=== PATIENT | female | born 1985 | race Hispanic/Latino ===

== ENCOUNTER 2017-07-01 18:05 | Emergency (ER) | payer OTHER ==
[~2017-07-01] VITALS: Ht 162.6 cm; Wt 97.8 kg
[~2017-07-01 18:05] MED LIST: CYCLOBENZAPRINE5 MG PO; FLUOXETINE HCL20 MG PO; IBUPROFEN800 MG PO; LEVOTHYROXINE100 MCG PO; MUCINEX SINUS-1 EAC1 PO; NORCO 5-325 TA1 EACH PO; TYLENOL COLD M1 EAC2 PO; VITAMIN D5000 UNIT PO
== END 2017-07-01 19:32 | disposition home or self-care (01) ==
LOC: ED 18:05
DX: T54.91XA Toxic effect of unspecified corrosive substance, accidental (unintentional), initial encounter (principal); F32.9 Major depressive disorder, single episode, unspecified; F41.9 Anxiety disorder, unspecified; Z91.010 Allergy to peanuts
CPT/HCPCS: 99282

== ENCOUNTER 2017-08-15 01:30 | Emergency (ER) | payer OTHER ==
[~2017-08-15] VITALS: Ht 162.6 cm; Wt 97.8 kg
--- NOTE | 2017-08-15 17:26 | EKG ---
[facility] [address] [facility] [place], [place] [address] Signed Normal sinus rhythm Normal ECG No previous ECGs available Confirmed by CARMEN WELLINGTON MD ([id number]) on 08/15/2017 5:26:07 PM Electronically Signed By: CARMEN WELLINGTON MD 08/15/17 1726 PATIENT NAME: BRANDYDANNY Electrocardiogram DATE OF : 85 PHYSICIAN: CARMEN WELLINGTON MD REPORT #: [id number] REPORT IS CONFIDENTIAL AND NOT TO BE RELEASED WITHOUT AUTHORIZATION
== END 2017-08-15 02:16 ==
LOC: ED 01:30
DX: J06.9 Acute upper respiratory infection, unspecified (principal); Z91.010 Allergy to peanuts
CPT/HCPCS: 71045; 93005; 93010; 99283

== ENCOUNTER 2019-10-03 04:43 | Emergency (ER) | payer OTHER ==
[~2019-10-03] VITALS: Ht 162.6 cm; Wt 92.3 kg
[~2019-10-03 04:43] MED LIST changes: +PAROXETINE HCL20 MG PO
[2019-10-03] MEDS ORDERED: LEVOTHYROXINE100 MCG PO (05:05)
[2019-10-03] MEDS ORDERED: PRENATAL FORMU1 EAC2 PO (05:06)
== END 2019-10-03 06:58 | disposition home or self-care (01) ==
LOC: ED 04:43
DX: O20.0 Threatened abortion (principal); F41.9 Anxiety disorder, unspecified; F32.9 Major depressive disorder, single episode, unspecified; Z91.010 Allergy to peanuts; Z79.899 Other long term (current) drug therapy; Z3A.08 8 weeks gestation of pregnancy
CPT/HCPCS: 76801; 81001; 84702; 85025; 86900; 86901; 99284-25

== ENCOUNTER 2019-11-13 19:41 | Emergency (ER) | payer OTHER ==
[~2019-11-13] VITALS: Ht 162.6 cm; Wt 92.1 kg
[~2019-11-13 19:41] MED LIST changes: +PRENATAL FORMU1 EAC2 PO
[2019-11-15] MEDS ORDERED: CORTISPORIN OIN15 GM TOP (07:33)
[2019-11-15] MEDS ORDERED: ACETAMINOPHEN500 MG PO (07:33)
[2019-11-15] MEDS ORDERED: OFLOXACIN5 M1 OTIC (08:32)
== END 2019-11-14 02:04 | disposition home or self-care (01) ==
LOC: ED 19:41
DX: H60.92 Unspecified otitis externa, left ear (principal); F41.9 Anxiety disorder, unspecified; F32.9 Major depressive disorder, single episode, unspecified; Z91.010 Allergy to peanuts; Z79.899 Other long term (current) drug therapy
CPT/HCPCS: 99282

== ENCOUNTER 2019-11-15 07:06 | Emergency (ER) | payer OTHER ==
[~2019-11-15] VITALS: Ht 162.6 cm; Wt 101.4 kg
--- OUTSIDE RECORDS SUMMARY | 2019-11-15 07:08 | XMS ---
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 - 2 Visits in 30 Days CARE PROVIDERS DOMENIC MUNIZ [facility] Current PHONE: [phone] Jordyn has no Care Guidelines for this patient. Vika VISIT COUNT (12 MO.) 3 [facility] TOTAL 3 NOTE: Visits indicate total known visits. 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
[2019-11-15] MEDS ORDERED: CORTISPORIN OIN15 GM TOP (07:33)
[2019-11-15] MEDS ORDERED: ACETAMINOPHEN500 MG PO (07:33)
[2019-11-15] MEDS ORDERED: OFLOXACIN5 M1 OTIC (08:32)
== END 2019-11-15 08:45 | disposition home or self-care (01) ==
LOC: ED 07:06
DX: H60.92 Unspecified otitis externa, left ear (principal); F32.9 Major depressive disorder, single episode, unspecified; E55.9 Vitamin D deficiency, unspecified; F41.9 Anxiety disorder, unspecified; Z91.010 Allergy to peanuts; Z88.8 Allergy status to other drugs, medicaments and biological substances; Z79.899 Other long term (current) drug therapy
CPT/HCPCS: 99282

== ENCOUNTER 2020-02-11 13:50 | Observation (INO) | payer OTHER ==
[~2020-02-11 13:50] MED LIST changes: +ACETAMINOPHEN500 MG PO; +CORTISPORIN OIN15 GM TOP; +OFLOXACIN5 M1 OTIC
== END 2020-02-12 13:45 | disposition home or self-care (01) ==
LOC: FBCO 13:50 → FBC 19:35 → FBCO 02-12 13:45
PROVIDERS: ADMIT Obstetrics & Gynecology; ATTEND Obstetrics & Gynecology
DX: O36.8120 Decreased fetal movements, second trimester, not applicable or unspecified (principal); Z3A.27 27 weeks gestation of pregnancy
CPT/HCPCS: G0378

== ENCOUNTER 2020-04-22 02:47 | Inpatient (IN) | payer OTHER ==
[~2020-04-22] VITALS: Ht 162.6 cm; Wt 110.7 kg
--- NOTE | 2020-04-22 04:02 | NUR ---
SWABBED BOTH NARES FOR RAPID COVID TEST
[2020-04-22] MEDS ORDERED: LEVOTHYROXINE175 MC1 PO (04:09)
[2020-04-22] MEDS ORDERED: KEFLEX750 MG PO (04:10)
--- NOTE | 2020-04-22 07:13 | NUR ---
04/22/20 0713 Miryam Valentine 0622 PT ARRIVED IN PACU WIDE AWAKE C/O ABD CRAMPING. 0626 ANESTHESIA GAVE 1 GM OF IV TYLENOL FOR 4/10 ABD CRAMPING. 0630 FBC RN IN ROOM HELPING MOM BREAST FEED BABY. DAD AT BEDSIDE TAKING PICS. 0645 MOM HOLDING BABY SKIN TO SKIN. NO C/O'S. 0655 MOM ASKING FOR HELPING BREAST FEEDING BABY. RN ASKED FBC RN TO RETURN TO ROOM AND ASSIST PT. REPORT GIVEN TO FBC RN AT NURSES STATION.
--- NOTE | 2020-04-23 06:54 | PR ---
[facility] [address] [place], [place] [address] Signed PP Progress Notes Datetime Report Generated by CPN: 04/23/2020 06:54 SUBJECTIVE: [id number] Pain: Within Normal Limits Nausea/Vomiting: Denies Flatus: Yes Bowel Movement: No Vital Signs: [id number] Vital Signs: Reviewed; Within Normal Limits Cardiovascular: Normal Respiratory: Normal Abdomen/Uterus: Normal Lochia: Normal Vulva/Perineum: Not Done Breasts: Not Done CVA Tenderness: Normal Incision: Normal Progress: Normal Exam Comments: Fundus firm U-2 nontender. Incision well healing IMPRESSION/PLAN/PROCEDURES: [id number] Impression: Normal Progression Plan: Continue Present Management Progress Notes: Pt seen and examined. Doing well. Ambulating and tolerating full diet. Pain and lochia minimal. Breast and bottle feeding. No fevers/chills, or other concerns. Webb out this AM. Anticipate d/c home tomorrow Signing Physician: Domonique Siu DO Copies: ~ *Electronically Signed* 04/23/20 0654 DOMONIQUE SIU DO PATIENT NAME: DANNY CARDONA PROGRESS NOTE DATE OF : [birth year] PHYSICIAN: DOMONIQUE SIU DO RPT #: [id number] REPORT IS CONFIDENTIAL AND NOT TO BE RELEASED WITHOUT AUTHORIZATION
--- NOTE | 2020-04-24 08:54 | PR ---
[facility] [address] [facility] [place], [place] [address] Signed PP Progress Notes Datetime Report Generated by CPN: 04/24/2020 08:53 SUBJECTIVE: [id number] Pain: Within Normal Limits Nausea/Vomiting: Denies Flatus: Yes Bowel Movement: No Vital Signs: [id number] Vital Signs: Reviewed; Within Normal Limits Cardiovascular: Normal Respiratory: Normal Abdomen/Uterus: Normal Lochia: Normal Vulva/Perineum: Not Done Breasts: Not Done CVA Tenderness: Normal Extremities: Normal Incision: Normal Progress: Normal Exam Comments: Fundus firm U-2 nontender. Incision healing well w/ jorge in place IMPRESSION/PLAN/PROCEDURES: [id number] Impression: Normal Progression Plan: Discharge Progress Notes: Pt seen and examined. Doing well. Ambulating, voiding, and tolerating full diet. SAHU improved. No fevers/chills or other concerns. Pain and lochia mild. Desires d/c home today. Reviewed d/c instructions in detail. All questions answered. Signing Physician: Domonique Siu DO Copies: ~ *Electronically Signed* 04/24/20 0853 DOMONIQUE SIU DO PATIENT NAME: DANNY CARDONA PROGRESS NOTE DATE OF : [birth year] PHYSICIAN: DOMONIQUE SIU DO RPT #: [id number] REPORT IS CONFIDENTIAL AND NOT TO BE RELEASED WITHOUT AUTHORIZATION
--- NOTE | 2020-04-25 16:30 | OR ---
[facility] [address] [place], [place] [address] Signed DATE OF OPERATION: 04/22/2020 SURGEON: Domonique Siu DO PREOPERATIVE DIAGNOSES: 1. Term . 2. Breech presentation. 3. Spontaneous rupture of membranes. 4. Obesity. POSTOPERATIVE DIAGNOSES: 1. Term . 2. Breech presentation. 3. Spontaneous rupture of membranes. 4. Obesity. PROCEDURE PERFORMED: Primary low transverse delivery. ANESTHESIA: Spinal. ORNAMENTAL BRICK INSTALLER: Cherise Ward DO ESTIMATED BLOOD LOSS: 600 mL. COMPLICATIONS: None. FINDINGS: Viable male , born in the breech presentation. Clear amniotic fluid. Normal uterus, tubes, and ovaries. INDICATIONS: Ms. Pinzon is a very pleasant 34-year-old G2, P1 female, who presented to Labor and Delivery in 37th week with spontaneous rupture of membranes. was complicated by persistent breech presentation and suspected macrosomia. The patient had previously declined external cephalic version. The patient was consented for primary Electronically Signed By: DOMONIQUE SIU DO 04/25/20 1630 PATIENT NAME: DANNY CARDONA OPERATIVE REPORT DATE OF : [birth year] REPORT #: [id number] PHYSICIAN: DOMONIQUE SIU DO PCP: DOMENIC MUNIZ MD REPORT IS CONFIDENTIAL AND NOT TO BE RELEASED WITHOUT AUTHORIZATION [address], [place] [address] Signed low transverse delivery. Risks, benefits, and alternatives were discussed in detail with the patient. The patient understands and wishes to proceed with the procedure. TECHNIQUE: The patient was taken to the operating room where time-out was performed to confirm correct patient and correct procedure. Spinal anesthesia was adequately established. The patient was prepped and draped in the supine position with a bump under the right hip. ICPs were on and running. The patient received Ancef 3 g and azithromycin 500 mg IV preoperatively. No heparin was indicated. A Pfannenstiel skin incision was made and carried down to the fascia after ensuring adequate spinal anesthetic. The fascia was nicked in the midline with a surgical scalpel and fascial incision was extended bilaterally using curved Lopez scissors. The fascia was grasped with Bennie clamps, elevated, and the underlying rectus muscle dissected bluntly and sharply without difficulty. The rectus muscles were divided in the midline and the peritoneum was grasped, elevated, and entered sharply. Peritoneal incision was extended cephalad caudad using blunt and sharp dissection. Survey of the abdomen and pelvis demonstrated no intraabdominal adhesions. An Ezequiel self retractor was placed in the lower uterine segment identified. Hysterotomy was then performed with a surgical scalpel returning clear fluid. Hysterotomy was then extended bilaterally using blunt dissection. The surgeon's hand was placed in the uterine cavity and the buttocks were gently elevated into the maternal abdomen, delivered with the assistance of fundal pressure. The was delivered up to the anterior facing axilla and the anterior arm was swept medially and delivered. The baby was rotated to 180 degrees. The now anterior arm was swept medially and delivered. The baby was then rotated occiput anterior and the head was gently flexed and delivered with the assistance of fundal pressure without any difficulty. The was vigorous and cried at delivery and the cord doubly clamped and cut. The was handed to the waiting pediatric team for further care. Cord bloods were obtained for routine analysis. The placenta was then manually expressed intact with a centrally inserted 3-vessel cord. The uterine cavity was cleared of any remaining products of conception or clot. The uterus firmed quickly with no excessive blood loss. Hysterotomy was then repaired using 0 Monocryl in a running locked manner. A 2nd imbricating suture of 0 Monocryl was applied with good imbrication noted. Small amount of oozing was noted in the midline and a [id number]-iv-[id number] was placed. Quickly expanding hematoma was noted at the superior edge of the peritoneal incision of the uterine corpus and this was made hemostatic with another tqvxdu-vv-zddcf of 0 Monocryl. The hematoma was evaluated for several minutes to ensure that it was no longer expanding. The pelvis was irrigated and found to be hemostatic. Tubes and ovaries were identified and normal. The Ezequiel self retractor was removed and the hysterotomy again re-evaluated and found to be satisfactory. ACell sheet was placed in the lower uterine segment and the peritoneum was reapproximated using 2-0 Vicryl in a running nonlocked manner. Rectus was examined and made hemostatic Electronically Signed By: DOMONIQUE SIU DO 04/25/20 1630 PATIENT NAME: BRANDY BERNALDANNY OPERATIVE REPORT DATE OF : [birth year] REPORT #: [id number] PHYSICIAN: DOMONIQUE SIU DO PCP: DOMENIC MUNIZ MD REPORT IS CONFIDENTIAL AND NOT TO BE RELEASED WITHOUT AUTHORIZATION [address] [address] Signed with judicious use of the Bovie electrocautery. Rectus was then plicated in the midline using 0 Vicryl interrupted sutures. ACell powder was applied to the rectus sheath. The fascia was then reapproximated using 0 Vicryl in a running nonlocked manner. Subcu was irrigated and made hemostatic with judicious use of Bovie electrocautery. Subcu was then closed using 2-0 Vicryl in a running nonlocked manner. Skin was reapproximated with surgical jorge with excellent hemostasis and cosmesis. The uterus was Crede'd for scant blood and the patient was taken to the PACU in good and stable condition. Sponge, needle, and instrument count was correct x2 at the end of the procedure. Dr. Ward was present and participated in all portions of procedure. Domonique Siu DO JDW/MODL /[id number] Copies: ~ Electronically Signed By: DOMONIQUE SIU DO 04/25/20 1630 PATIENT NAME: BRANDY BERNALDANNY OPERATIVE REPORT DATE OF : 85 REPORT #: [id number] PHYSICIAN: DOMONIQUE SIU DO PCP: DOMENIC MUNIZ MD REPORT IS CONFIDENTIAL AND NOT TO BE RELEASED WITHOUT AUTHORIZATION
== END 2020-04-24 16:40 | disposition home or self-care (01) | DRG 788 ==
LOC: FBCO 02:47 → FBC 03:01
PROVIDERS: ADMIT Obstetrics & Gynecology; ATTEND Obstetrics & Gynecology
PROC: 10D00Z1 Extraction of Products of Conception, Low, Open Approach (ICD-10-PCS; principal; 2020-04-22 04:59)
PROC: 3E0R3GC Introduction of Other Therapeutic Substance into Spinal Canal, Percutaneous Approach (ICD-10-PCS; 2020-04-24)
DX: O32.1XX0 Maternal care for breech presentation, not applicable or unspecified (principal); Z3A.37 37 weeks gestation of pregnancy; Z37.0 Single live birth; Z20.822 Contact with and (suspected) exposure to COVID-19; O99.214 Obesity complicating childbirth; E66.9 Obesity, unspecified; O89.4 Spinal and epidural anesthesia-induced headache during the puerperium; G97.1 Other reaction to spinal and lumbar puncture; O99.824 Streptococcus B carrier state complicating childbirth; O42.92 Full-term premature rupture of membranes, unspecified as to length of time between rupture and onset of labor; O36.63X0 Maternal care for excessive fetal growth, third trimester, not applicable or unspecified; O99.284 Endocrine, nutritional and metabolic diseases complicating childbirth; E03.9 Hypothyroidism, unspecified; Z88.8 Allergy status to other drugs, medicaments and biological substances; Z79.899 Other long term (current) drug therapy
CPT/HCPCS: 01961; 36415; 85027; C9803; J0131; J0456; J0461; J0690; J1650; J1885; J2001; J2274; J2405; J2590; J2710; J3010; J7060; J7121; U0003

== ENCOUNTER 2021-02-22 12:38 | Emergency (ER) | payer OTHER ==
[~2021-02-22] VITALS: Ht 152.4 cm; Wt 110.9 kg
[~2021-02-22 12:38] MED LIST changes: +KEFLEX750 MG PO; +LEVOTHYROXINE175 MC1 PO
== END 2021-02-22 14:07 | disposition home or self-care (01) ==
LOC: ED 12:38
DX: S61.211A Laceration without foreign body of left index finger without damage to nail, initial encounter (principal); W26.0XXA Contact with knife, initial encounter; Z88.8 Allergy status to other drugs, medicaments and biological substances; Z91.010 Allergy to peanuts; Z79.899 Other long term (current) drug therapy
CPT/HCPCS: 12001; 90471; 90715; 99282-25

== ENCOUNTER 2021-03-30 12:52 | Emergency (ER) | payer OTHER ==
[~2021-03-30] VITALS: Ht 152.4 cm; Wt 110.9 kg
== END 2021-03-30 14:59 | disposition home or self-care (01) ==
LOC: ED 12:52
DX: U07.1 COVID-19 (principal); Z88.8 Allergy status to other drugs, medicaments and biological substances; Z91.010 Allergy to peanuts; Z79.899 Other long term (current) drug therapy
CPT/HCPCS: 99284; U0003

== ENCOUNTER 2021-09-29 06:08 | Observation (INO) | payer OTHER ==
[~2021-09-29] VITALS: Ht 152.4 cm; Wt 103.0 kg
--- NOTE | 2021-09-29 13:25 | CONS ---
[facility] [address] [place], [place] [address] Signed DATE OF CONSULTATION: 09/29/2021 CHIEF COMPLAINT: Right lower quadrant abdominal pain. HISTORY OF PRESENT ILLNESS: Angélica is a 36-year-old obese female I have known for several years. She has had 2-day history now of periumbilical pain, it is now localized to the right lower quadrant associated with nausea. She came to the emergency room for evaluation. In the emergency room, her white count is normal, but she is tender in the right lower quadrant. Beta- HCG was negative. The CT scan of abdomen and pelvis shows the appendix at about 9 mm with some mild periappendiceal inflammation and two appendicoliths. She happens to have a small fat containing supraumbilical, umbilical and infraumbilical hernias. These are from her laparoscopic cholecystectomy and her laparoscopic removal of the right ovary. I have been asked therefore to see her as a general surgeon on-call here in the emergency room. PAST MEDICAL HISTORY: 1. Hypothyroidism. 2. Depression. 3. Anxiety. 4. Vitamin D deficiency. PAST SURGICAL HISTORY: Includes laparoscopic cholecystectomy by Dr. Villaseñor, laparoscopic right salpingo-oophorectomy with Dr. Allan Schultz, right upper extremity cyst removal. SOCIAL HISTORY: She does not smoke. She has an occasional drink. Her is Maurice at [phone] and her sister is Amara Pinzon at [phone]. [place] Her survival specialist is Dr. Yogi Siu. 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 She does drive. She has two children. She prefers the [facility]. FAMILY HISTORY: Dad has diabetes. REVIEW OF SYSTEMS: She had 10 systems reviewed including the pertinent positives as above. ALLERGIES: Peanuts and terbinafine. Electronically Signed By: ELIE VILLASEÑOR MD 09/29/21 1325 PATIENT NAME: ANGÉLICA QUESADA CONSULTATION DATE OF : 85 REPORT #: [id number] PHYSICIAN: ELIE VILLASEÑOR MD PCP: VIDA MUNIZ MD REPORT IS CONFIDENTIAL AND NOT TO BE RELEASED WITHOUT AUTHORIZATION [facility] [address] [place] [id number] Signed MEDICATIONS: Levothyroxine 175 mcg p.o. daily. PHYSICAL EXAMINATION: VITAL SIGNS: Her blood pressure is 117/69, her heart rate is 65, respiratory rate is 18, temperature is 98.8, she is 100% on room air. She is 5 feet tall, 102 kg. GENERAL: Angélica is a 36-year-old female lying supine in her ER bed. She does not appear systemically ill or toxic. She is alert, awake, and interactive. LUNGS: Clear to auscultation bilaterally. HEART: Regular rate and rhythm without murmurs. ABDOMEN: Obese, but soft with some tenderness in the right lower quadrant even after the pain medication. LABORATORY DATA: Her white blood cell count is 7.4, neutrophils 60, hemoglobin 14 BUN 20, creatinine 1.15, glucose 107. Liver function tests are negative. Beta-hCG negative. COVID is pending. Albumin is 3.8. Urinalysis is negative. RADIOGRAPHIC STUDIES: CT scan of the abdomen and pelvis is reviewed and she has three small fat containing hernias in the supraumbilical, umbilical and infraumbilical areas associated with the laparoscopic surgeries. She has an appendix that is about 9 mm in diameter with mild periappendiceal inflammation and two appendicoliths. ASSESSMENT AND PLAN: Angélica is a 36-year-old female who presents with acute appendicitis. I reviewed the findings with her in detail. We have discussed laparoscopic versus open appendectomy. We have discussed the location and function of the appendix. We have discussed the expected intraop and postop course. We reviewed the risk including, but not limited to bleeding, infection, scarring, change in contour of the skin, damage to bowel, appendiceal stump leak, postoperative intra-abdominal abscess, incisional hernias and other unforeseen comorbidities. She has expressed understanding and wishes to proceed. Elie Villaseñor MD ALB/MODL /[id number] Electronically Signed By: ELIE VILLASEÑOR MD 09/29/21 1325 PATIENT NAME: ANGÉLICA QUESADA CONSULTATION DATE OF : 85 REPORT #: [id number] PHYSICIAN: ELIE VILLASEÑOR MD PCP: VIDA MUNIZ MD REPORT IS CONFIDENTIAL AND NOT TO BE RELEASED WITHOUT AUTHORIZATION [address] [address] Signed cc: MD Yogi Kasper DO Alison Madsen, MD Copies: ELIE VILLASEÑOR MD,VIDA GRIMALDO MD ~ Electronically Signed By: ELIE VILLASEÑOR MD 09/29/21 1325 PATIENT NAME: REBECA QUESADAJOSE WAITE CONSULTATION DATE OF : 85 REPORT #: [id number] PHYSICIAN: ELIE VILLASEÑOR MD PCP: VIDA MUNIZ MD REPORT IS CONFIDENTIAL AND NOT TO BE RELEASED WITHOUT AUTHORIZATION
--- NOTE | 2021-09-29 13:32 | NUR ---
09/29/21 1332 Siu,Debora Hernandez PATIENT AWAKENED WITH TOUCH AND VOICE. ORAL AIRWAY OUT.
--- NOTE | 2021-09-29 14:20 | NUR ---
PT ARRIVED VIA STRETCHER FROM PACU, ABLE TO TRANSFER SELF TO HOSPITAL BED. PT ON ROOM AIR, LUNG SOUNDS CLEAR, DENIES SOB. PT RATING ABD PAIN 5/10. DENIES NAUSEA, BOWEL TONES HYPOACTIVE. LAP SITES X3, CDI. CMS INTACT, WITHOUT EDEMA, SCDS IN PLACE. IV FLUIDS STARTED D5LR AT 100ML/HR. PT GIVEN 0.5MG IV DILAUDID. PT PROVIDED WITH ICE WATER, CLEAR LIQUID TRAY ORDERED. PT DENIES OTHER NEEDS AT THIS TIME.
[2021-09-29] MEDS ORDERED: ACETAMINOPHEN500 M1 PO (14:52)
[2021-09-29] MEDS ORDERED: MOTRIN IB200 MG PO (14:54)
[2021-09-29] MEDS ORDERED: FIBER GUMMIES2 GM PO (14:55)
[2021-09-29] MEDS ORDERED: AZO D-MANNOSE500 MG PO (14:56)
--- NOTE | 2021-09-29 14:57 | NUR ---
MED REC COMPLETE
--- NOTE | 2021-09-29 15:00 | NUR ---
POST OP VITALS COMPLETED. PT STILL REPORTING 6/10 PAIN. PO NORCO ADMISNTERED. PT DRINKING CLEAR LIQUID TRAY WITHOUT N/V. DRESSING C/D/I. DENIES FURTHER NEEDS. CALL LIGHT IN REACH.
--- NOTE | 2021-09-29 16:33 | NUR ---
POST OP VITALS COMPLETED. ASSESSMENT COMP. PT DENIES NASUEA. PAIN IS 4/10. BOWEL TONES HYPOACTIVE. DRANK ENTIRE CLEAR TRAY. DRESSING C/D/I. PT UP TO VOID 500ML. NOW BACK IN BED. FLUIDS INFUSING.
--- NOTE | 2021-09-29 18:08 | NUR ---
FINAL POST OP VITALS COMPLETED. PT REPORTING 4/10 PAIN AND REQUESTING PAIN MEDICATION. NORCO ADMISNTERED. ASSESMENT SAME PREVIOUS. AT BEDSIDE. EATING FULL LIQUID TRAY WITH NO N/V. CALL LIGHT IN REACH.
--- NOTE | 2021-09-29 19:49 | NUR ---
On room air, coop with assessment, clear lungs, abd tender, 3 lap sites with tape over it. faint bowel tones. not passing gas, minimum of burping stated. IVF infusing LAC. scds in place. c/o abd pain 07/08 medicated with DIlaudid 1mg IV. alert and oriented, cooperative. tolerating liquids well, no c/o n/v at this time
--- NOTE | 2021-09-29 20:02 | NUR ---
PLACED pt ON CONTINUOUS O2 SAT MONITORING PER PRIMARY RN REQUEST. SAT MID 90'S. NO REQUESTS AT THIS TIME. CALL LIGHT WITHIN REACH.
--- NOTE | 2021-09-29 21:20 | NUR ---
PT UTILIZES CALL LIGHT, REQUESTS TO USE THE BATHROOM. PT UP TO BATHROOM AND BACK TO BED WITH SBA. TOLERATED WELL. FRESH ICE PACK PROVIDED. PT DENIES FURTHER NEEDS. CALL LIGHT IN REACH.
--- NOTE | 2021-09-29 23:11 | NUR ---
AWAKE, PLAYING WITH PHONE, NO C/O PAIN, IVF INFUSING, ABD LAP SITES W/O PROBLEMS, DENIES PASSING GAS. TOLERATING LIQUIDS WELL. PLEASNT AND COOP
--- NOTE | 2021-09-30 01:12 | NUR ---
Pt used call light, up to BR, voided medium yellow urine, back to bed 1PA, tolerated fair, c/o 8/10 abd pain. Medicated with 2 [place], med teaching done On room air. abd tender dallin, stated burping but no rectal gas. 3Lap sites intact. scds in place, IVF infusing. Medicated using IS, up to 1250, post op finger cpox in place. wnl
--- NOTE | 2021-09-30 03:00 | NUR ---
On room air, awakes easily when dooe opened, no further c/o pain. IVF infusing, scds in place, fluids and call light at hands reach
--- NOTE | 2021-09-30 05:29 | NUR ---
Pt on room air, post op cpox in plce wnl. medicated with dilaudid at begining of shift and with norco later per abd pain, effective. low abd 3 lap sites with tape over areas. CASSANDRA, denies passing rectal gas, burping present. IVF infusing w/o problems, tolerating full liquids well. no emesis. SCDs on, Up to br several times, voiding QS, back to bed 1PA, has tolerated well. Pleasant, alert and oriented. cooperative
--- NOTE | 2021-09-30 05:59 | NUR ---
up to br, voided, denies passing rectal gas, abd slight distention, lat sites intact. back to bed 1pa, tolerated well, no c/o pain, no n/v, IVF infusing w/o problems, scds in place
--- NOTE | 2021-09-30 06:11 | NUR ---
walked hallways down to ICU and over to [facility] staion and back, tolerated well, did own am care, voided again large amount of medium yellow urine. back to bed, tolerated well, no c/o pain, not passing gas yet. increaed ambulation encouraged for this am, stated understanding. used IS
--- NOTE | 2021-09-30 07:31 | NUR ---
REPORT RECEIVED FROM NIGHT RN - PT RESTING IN BED AWAKE, REQUESTS HEAT TURNED UP AND BLINDS CLOSED. PT STATES SHE IS HUNGRY AND EXCITED FOR BREAKFAST. CALL LIGHT IN REACH.
--- NOTE | 2021-09-30 07:43 | OR ---
[facility] [address] [place], [place] [address] Signed DATE OF OPERATION: 09/29/2021 SURGEON: Elie Villaseñor MD PREOPERATIVE DIAGNOSES: 1. Acute appendicitis. 2. Appendicolith. POSTOPERATIVE DIAGNOSES: 1. Acute appendicitis. 2. Appendicolith. PROCEDURE: Laparoscopic appendectomy. ESTIMATED BLOOD LOSS: None. INDICATIONS: Angélica is a 36-year-old female who I have helped in the past. On this occasion, she had two days of periumbilical pain, it is now localized to the right lower quadrant. She has had some nausea. She came to emergency room for evaluation. She was tender in the right lower quadrant, but her white count was normal. Beta HCG was negative. CT scan was done and she does have an appendix that is about 9 mm in diameter and there is mild periappendiceal inflammation. She has two stones in the appendix. She has also had previous laparoscopic surgeries and she has a small hernia above at and below the umbilicus. All three little bit of fat. She told me she is completely asymptomatic from all three. 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 I was asked to see her in the emergency room. I had reviewed all this with Angélica in detail. I explained to her the location and function of the appendix. We had discussed laparoscopic versus open appendectomy. She understands there is risk including, but not limited to bleeding, infection, scarring, change in contour of the skin, damage to bowel, appendiceal stump leak, postoperative intra-abdominal abscess, incisional hernias and other unforeseen comorbidities. She had expressed understanding and wished to proceed. PROCEDURE NOTE: Angélica was taken into our operating room and placed in the supine position under general endotracheal tube anesthesia. She was given preoperative antibiotics along with subcutaneous Lovenox. SCDs were utilized. A Webb catheter had been inserted with Electronically Signed By: ELIE VILLASEÑOR MD 09/30/21 0743 PATIENT NAME: ANGÉLICA QUESADA OPERATIVE REPORT DATE OF : 85 REPORT #: [id number] PHYSICIAN: ELIE VILLASEÑOR MD PCP: DOMENIC MUNIZ MD REPORT IS CONFIDENTIAL AND NOT TO BE RELEASED WITHOUT AUTHORIZATION [facility] [address] [place] [address] Signed return of clear yellow urine without difficulty. She was prepped and draped in the usual sterile fashion. We utilized a standard vertical infraumbilical incision and carried that in the abdomen under direct visualization without difficulty. The suprapubic and right subcostal trocar sites were placed under direct visualization of the camera without difficulty. We had taken pictures throughout for photodocumentation. The cecum and the appendix were easily elevated and thankfully the base of the appendix was not inflamed. The base of the appendix was cleared with the help of the cautery. As we grasped the appendix, it did rupture about 2 cm from the base. We then suctioned it out. We divided the appendix from the base of the cecum with a linear stapler. We then divided the mesoappendix with a vascular load on the stapler. The appendix was placed into an EndoCatch bag. We used our suction shank maker to irrigate around the cecum and suction it out until clear. We had removed the appendix. We used our laparoscopic suturing device to pass 0-Vicryl suture on either side of the fascia of the subxiphoid trocar site. This was tied down to close this fascia primarily. The gas was then allowed to escape and all the trocars were removed and passed off the table. The fascia of the infraumbilical trocar site was closed with multiple ggziue-be-rawkm and simple interrupted 0 Vicryl sutures. Local anesthetic was then injected into all three trocar sites. Each trocar site was irrigated and suctioned out until clear. We closed the skin and dermis of each trocar site with interrupted 3-0 subcuticular and Monocryl sutures. We used a 5-0 fast absorbing plain gut suture to close the skin edges of the infraumbilical trocar site. We used just a single interrupted stitch with 5-0 fast absorbing plain gut suture to close the most lateral aspect of the right subcostal trocar site. Dry gauze and tape were then applied to all three incisions. The Webb catheter was removed without difficulty. Angélica was awakened from anesthesia, extubated in the OR, and taken to recovery in stable condition. Elie Villaseñor MD [facility]/MODL /[id number] cc: MD Yogi Hensley DO Andrew L Bower, MD Electronically Signed By: ELIE VILLASEÑOR MD 09/30/21 0743 PATIENT NAME: ANGÉLICA QUESADA OPERATIVE REPORT DATE OF : [birth year] REPORT #: [id number] PHYSICIAN: ELIE VILLASEÑOR MD PCP: DOMENIC MUNIZ MD REPORT IS CONFIDENTIAL AND NOT TO BE RELEASED WITHOUT AUTHORIZATION [facility] [address] [place], [place] [address] Signed Copies: DOMENIC MUNIZ MD, JAMES D DO BOWER, ANDREW L MD ~ Electronically Signed By: ELIE VILLASEÑOR MD 09/30/21 0743 PATIENT NAME: ANGÉLICA QUESADA OPERATIVE REPORT DATE OF : [birth year] REPORT #: [id number] PHYSICIAN: ELIE VILLASEÑOR MD PCP: DOMENIC MUNIZ MD REPORT IS CONFIDENTIAL AND NOT TO BE RELEASED WITHOUT AUTHORIZATION
--- NOTE | 2021-09-30 08:21 | NUR ---
RN IN ROOM TO ADMINISTER SCHEDULED MEDICATIONS - PT AWAKE IN BED UPON ENTRY. MD HAS ROUNDED THIS AM, PT DENIES QUESTIONS ABOUT POC AT THIS TIME. ABD ASSESSMENT WNL POST OP DAY 2, LAP SITES WELL APPROXIMATED WITHOUT DRAINAGE. PT RATES PAIN 3/10, WITH GAS PAIN MOSTLY ON THE RIGHT SIDE. DENIES NEED FOR PRN MEDICATIONS AT THIS TIME. ICE PACK PROVIDED. PT EATING SOFT BREAKFAST - COFFEE PROVIDED FOR "CAFFIENE HEADACHE". IV SITE TOLERATING INFUSION WITHOUT DIFFICULTY, ABX STARTED. SCDS IN PLACE. CALL LIGHT IN REACH, DENIES FURTHER NEEDS.
[2021-09-30] MEDS ORDERED: HYDROCODON-ACE1 EAC8 PO (08:53)
[2021-09-30] MEDS ORDERED: BACTRIM DS TAB1 EACH PO (09:09)
--- NOTE | 2021-09-30 09:15 | DS ---
[facility] [address] [place], [place] [address] Signed ADMISSION DATE: 09/29/2021 DISCHARGE DATE: 09/30/2021 FINAL DIAGNOSIS: Acute appendicitis. PROCEDURE: Laparoscopic appendectomy. HISTORY OF PRESENT ILLNESS: Angélica is a 36-year-old obese female, who for two days had developed periumbilical pain that became localized to the right lower quadrant. She had nausea, but no vomiting. She came to the emergency room for evaluation. She was tender in the right lower quadrant, but her white count was normal. Beta-HCG was negative. The CT scan confirmed her appendicitis. HOSPITAL COURSE: Angélica was admitted as above and hydrated and started on Rocephin and Flagyl. She was taken to the operating room later that morning for laparoscopic appendectomy. Her appendix was becoming necrotic and so it did come apart a bit with manipulation and therefore that was suctioned out. We left her on antibiotics during her stay and we are going to send her home with antibiotics as well. Otherwise, she has been afebrile and tolerating her full liquid diet quite nicely. All incisions are healing well without any local signs or symptoms of infection and the abdomen is completely benign. DISCHARGE PLANS AND MEDICATIONS: Angélica will be discharged home with a prescription for Erieville 10/325 one tablet p.o. q.6 hours p.r.n. for severe postoperative pain. We will dispense 30 tablets with no refills. She will receive Bactrim DS one tablet p.o. b.i.d. for five days. We will dispense 10 tablets with no refills. She can use Tylenol, ibuprofen, or Aleve jvrk-hsh-hqnpysu for ufbd-jv-ryanpfky postoperative pain. She can resume other chronic medications. 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 She can certainly do light duty status, but should not do any heavy pushing, pulling, or lifting for a couple of months. I have asked her to keep that about 20 pounds currently. I will have her back in the office in about 7 to 10 days for followup. In the meantime, she can eat diet as tolerated. She can perform her activities as tolerated including walking up and down stairs and showering and bathing as usual. Again, she should not do any heavy pushing, pulling, or lifting over about 20 pounds. She has expressed understanding and agrees with the above plan. Electronically Signed By: ELIE VILLASEÑOR MD 09/30/21 0915 PATIENT NAME: ANGÉLICA QUESADA DISCHARGE SUMMARY DATE OF : 85 REPORT #: [id number] PHYSICIAN: ELIE VILLASEÑOR MD PCP: DOMENIC MUNIZ MD REPORT IS CONFIDENTIAL AND NOT TO BE RELEASED WITHOUT AUTHORIZATION [address] [address] Signed MD REYNOLD Kasper/ESTEFANIL /[id number] cc: MD Yogi Kasper DO Alison Madsen, MD Copies: ELIE VILLASEÑOR MD, JAMES D DO MADSEN, ALISON MD ~ Electronically Signed By: ELIE VILLASEÑOR MD 09/30/21 0915 PATIENT NAME: ANGÉLICA QUESADA DISCHARGE SUMMARY DATE OF : [birth year] REPORT #: [id number] PHYSICIAN: ELIE VILLASEÑOR MD PCP: DOMENIC MUNIZ MD REPORT IS CONFIDENTIAL AND NOT TO BE RELEASED WITHOUT AUTHORIZATION
--- NOTE | 2021-09-30 10:00 | NUR ---
RN IN ROOM TO START NEXT ABX INFUSION. PT BACK TO BED FROM AMBULATING TO BATHROOM, SOME DIZZINESS WITH THIS. BP TAKEN AFTER BACK TO BED AND SLIGHTLY LOW FOR PTS NORMAL. WILL CONTINUE TO ASSESS. PT UNABLE TO PASS GAS AT THIS TIME. ENCOURAGED REST DURING IV INFUSION AND AMBULATION IN APPROX 1 HOUR.
--- NOTE | 2021-09-30 11:46 | NUR ---
PT UP AMBULATING IN HALLWAY TO ATTEMPT TO RELIEVE GAS PAIN. DC EDUCATION PROVIDED, DENIES QUESTIONS AT THIS TIME. TO PUNCH PRESS SETTER RX AND THEN PUNCH PRESS SETTER PATIENT.
--- NOTE | 2021-09-30 12:57 | NUR ---
PT AMBULATING IN ROOM GETTING SELF READY TO DC WITH BANKING SERVICES CLERK HELP - PASSED GAS. FILLING RX AT PHARMACY.
--- NOTE | 2021-09-30 13:28 | NUR ---
PRN PAIN MEDICATION PROVIDED FOR 5/10 PAIN - AWAITING FOR RIDE HOME.
--- NOTE | 2021-10-03 15:07 | PATH ---
[facility] [address] [place], [place] [address] Signed SPECIMEN(S): A APPENDIX SPECIMEN SOURCE: A. APPENDIX CLINICAL HISTORY: Acute appendicitis, abdominal pain. FINAL PATHOLOGIC DIAGNOSIS: Appendix, appendectomy: - Acute appendicitis. NAL:cml:C2NR MICROSCOPIC EXAMINATION: Histologic sections of all submitted blocks are examined by light microscopy. These findings, together with the gross examination, support the pathologic diagnosis. GROSS DESCRIPTION: The specimen, labeled "CS, appendix," is received in formalin and consists of Specimen: Appendix with mesoappendix. Dimensions: 8.5 x 0.7 cm. Serosa: Violaceous and focally congested. Defect: Not grossly identified. Inking: Staple line is inked black. Mucosa: Dark red. Fecalith: Not grossly identified. Additional: None. Turntable Engineer sections are submitted in cassette (A1). JS (under the direct supervision of a pathologist) The Gross Description was prepared using a voice recognition system. The report was reviewed for accuracy; however, sound-alike word errors, addition and/or deletions may occur. If there is any question about this report, please contact Client Services. PERFORMING LABORATORY: The technical component was performed by [facility], [address] [place] [id number] (CLIA# [id number]).[facility] [address] [address] (CLIA# [id number]). PATIENT NAME: DANNY QUESADA PATHOLOGY DATE OF : [birth year] REPORT #: [id number] PHYSICIAN: KRISTIE PATHOLOGY PCP: DOMENIC MUNIZ MD REPORT IS CONFIDENTIAL AND NOT TO BE RELEASED WITHOUT AUTHORIZATION [address] [place], [place] [address] Signed Diagnostician: Qi Huertas MD Pathologist Electronically Signed 10/03/2021 Copies: ~ PATIENT NAME: DANNY QUESADA PATHOLOGY DATE OF : [birth year] REPORT #: [id number] PHYSICIAN: KRISTIE PATHOLOGY PCP: DOMENIC MUNIZ MD REPORT IS CONFIDENTIAL AND NOT TO BE RELEASED WITHOUT AUTHORIZATION
== END 2021-09-30 14:10 | disposition home or self-care (01) ==
LOC: ED 06:08 → MS 06:09
PROVIDERS: ADMIT Colon & Rectal Surgery; ATTEND Colon & Rectal Surgery
PROC: 0DTJ4ZZ Resection of Appendix, Percutaneous Endoscopic Approach (ICD-10-PCS; principal; 2021-09-29 11:48)
DX: K35.80 Unspecified acute appendicitis (principal); E03.9 Hypothyroidism, unspecified; Z20.822 Contact with and (suspected) exposure to COVID-19; Z88.8 Allergy status to other drugs, medicaments and biological substances; Z91.010 Allergy to peanuts
CPT/HCPCS: 36415; 74177; 80053; 81001; 83690; 84703; 85025; 87502; 96361; 96366; 96367; 96368; 96372; 96375; 96376; 99285-25; C9803; G0378; J0131; J0696; J1100; J1170; J1650; J1885; J2001; J2405; J2704; J3010; J7030; J7121; Q9967; U0003

== ENCOUNTER 2021-10-19 21:00 | Emergency (ER) | payer OTHER ==
[~2021-10-19] VITALS: Ht 152.4 cm; Wt 103.0 kg
[~2021-10-19 21:00] MED LIST changes: +ACETAMINOPHEN500 M1 PO; +AZO D-MANNOSE500 MG PO; +BACTRIM DS TAB1 EACH PO; +FIBER GUMMIES2 GM PO; +HYDROCODON-ACE1 EAC8 PO; +MOTRIN IB200 MG PO
--- OUTSIDE RECORDS SUMMARY | 2021-10-19 21:06 | XMS ---
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 Vika VISIT COUNT (12 MO.) 5 [facility] TOTAL 5 NOTE: Visits indicate total known visits. ED/UCC VISIT TRACKING (12 MO.) 10/19/2021 21:00 [facility] TYPE: Emergency COMPLAINT: - POST OP PROBLEM 10/19/2021 15:56 [facility] TYPE: Emergency COMPLAINT: - POST OP ABD PAIN 09/29/2021 06:08 [facility] TYPE: Emergency COMPLAINT: - ABDOMINAL PAIN 03/30/2021 12:53 [facility] TYPE: Emergency COMPLAINT: - BODY ACHES, SORE THROAT, RUNNY NOSE, CHEST PAIN DIAGNOSES: - Cough, unspecified - Allergy status to other drugs, medicaments and biological substances - COVID-19 - COUGH, UNSPECIFIED - Allergy to peanuts - Other fci (current) drug therapy 02/22/2021 12:38 [facility] TYPE: Emergency COMPLAINT: - FINGER LACERATION DIAGNOSES: - Allergy status to other drugs, medicaments and biological substances - Laceration without foreign body of left index finger without damage to nail, initial encounter - Allergy to peanuts - Other fci (current) drug therapy - Contact with knife, initial encounter INPATIENT VISIT TRACKING (12 MO.) 09/29/2021 06:09 [facility] TYPE: Observation COMPLAINT: - APENDICITIS DIAGNOSES: - Unspecified acute appendicitis - Allergy status to other drugs, medicaments and biological substances - Allergy to peanuts - Hypothyroidism, unspecified - Contact with and (suspected) exposure to COVID-19 [email or web address]
[2021-10-20] MEDS ORDERED: ULTRAM50 MG PO (00:37)
== END 2021-10-20 00:54 | disposition home or self-care (01) ==
LOC: ED 21:00
DX: G89.18 Other acute postprocedural pain (principal); R10.30 Lower abdominal pain, unspecified; Z91.010 Allergy to peanuts; Z88.8 Allergy status to other drugs, medicaments and biological substances; Z79.899 Other long term (current) drug therapy; Z79.4 Long term (current) use of insulin
CPT/HCPCS: 36415; 74177; 80053; 81001; 84703; 85025; 99284-25; A9270; J1885; Q9967

== ENCOUNTER 2022-08-28 21:41 | Emergency (ER) | payer OTHER ==
[~2022-08-28] VITALS: Ht 152.4 cm; Wt 103.0 kg
[~2022-08-28 21:41] MED LIST changes: +ULTRAM50 MG PO
[2022-08-28 22:59] VITALS: BP 129/68
== END 2022-08-28 23:02 | disposition home or self-care (01) ==
LOC: ED 21:41
DX: S61.011A Laceration without foreign body of right thumb without damage to nail, initial encounter (principal); W25.XXXA Contact with sharp glass, initial encounter; Z88.8 Allergy status to other drugs, medicaments and biological substances; Z91.010 Allergy to peanuts; Z79.899 Other long term (current) drug therapy
CPT/HCPCS: 99282

== ENCOUNTER 2023-02-09 19:06 | Emergency (ER) | payer OTHER ==
[~2023-02-09] VITALS: Ht 152.4 cm; Wt 103.1 kg
[2023-02-09] MEDS ORDERED: HYDROXYZINE HCL25 MG PO (20:09)
[2023-02-09 20:16] VITALS: BP 131/81
== END 2023-02-09 20:15 | disposition home or self-care (01) ==
LOC: ED 19:06
DX: F41.9 Anxiety disorder, unspecified (principal); Z91.010 Allergy to peanuts; Z88.8 Allergy status to other drugs, medicaments and biological substances; Z79.890 Hormone replacement therapy
CPT/HCPCS: 99283

== ENCOUNTER 2023-05-10 22:10 | Emergency (ER) | payer OTHER ==
[~2023-05-10] VITALS: Ht 152.4 cm; Wt 102.9 kg
[~2023-05-10 22:10] MED LIST changes: +HYDROXYZINE HCL25 MG PO
[2023-05-10] MEDS ORDERED: SYNTHROID112 MCG PO (22:30)
[2023-05-10] MEDS ORDERED: NITROGLYCERIN 0.4 MG SUBL SL PRN (22:30)
[2023-05-10] MEDS ORDERED: ASPIRIN 81 MG CHEW PO ONE (22:30)
[2023-05-10 22:35] LABS: BASOPHILS 0.9 % (0-2); EOSINOPHILS 1.5 % (0-6); HEMOGLOBIN 13.9 g/dL (12.0-18.0); LYMPHOCYTES 31.1 % (24-44); MCHC 33.1 g/dl (30-36); MCV 90.6 fl (81-99); MONOCYTES 6.8 % (0-12); NEUTROPHILS 59.7 % (39-80); PLATELET COUNT 201 K/uL (140-440); RBC 4.64 M/ul (4.3-5.7); RDW 13.5 (10.5-15.0)
[2023-05-10] MEDS ORDERED: KETOROLAC TROMETHAMINE 30 MG/ML VIAL IV ONE (22:45)
[2023-05-10 22:46] LABS: ALBUMIN 3.5 g/dL (3.4-5.0); ALBUMIN/GLOBULIN RATIO 0.85 (1.1-2.4); ANION GAP 12.5 (7-21); BILIRUBIN, TOTAL 0.2 ng/dL (0.2-1.0); BUN/CREATININE RATIO 21.42 (6.0-28.6); CALCIUM 8.9 mg/dL (8.5-10.1); CREATININE, SERUM 1.12 mg/dL (0.55-1.02); MAGNESIUM 1.9 mg/dL (1.8-2.4); POTASSIUM 3.5 mmol/L (3.5-5.1); PROTEIN, TOTAL 7.6 g/dL (6.4-8.2)
[2023-05-10] MEDS ORDERED: NAPROSYN500 MG PO (22:51)
--- NOTE | 2023-05-12 11:58 | EKG ---
[facility] [address] [facility] [place], [place] [address] Signed Normal sinus rhythm Nonspecific T wave abnormality Abnormal ECG Confirmed by Kelly Rodríguez MD ([id number]) on 05/12/2023 11:58:19 AM Electronically Signed By: KELLY RODRÍGUEZ 05/12/23 1158 PATIENT NAME: REBECA QUESADAJOSE WAITE Electrocardiogram DATE OF : 85 PHYSICIAN: KELLY RODRÍGUEZ REPORT #: [id number] REPORT IS CONFIDENTIAL AND NOT TO BE RELEASED WITHOUT AUTHORIZATION
== END 2023-05-10 23:12 | disposition home or self-care (01) ==
LOC: ED 22:10
PROVIDERS: Internal Medicine
DX: R07.1 Chest pain on breathing (principal); Z88.1 Allergy status to other antibiotic agents; Z91.010 Allergy to peanuts; Z79.890 Hormone replacement therapy
CPT/HCPCS: 36415; 71045; 80053; 83690; 83735; 84484; 84703; 85025; 93005; 93010; J1885

== ENCOUNTER 2023-11-14 22:52 | Emergency (ER) | payer OTHER ==
[~2023-11-14] VITALS: Ht 152.4 cm; Wt 105.5 kg
[~2023-11-14 22:52] MED LIST changes: +NAPROSYN500 MG PO; +SYNTHROID112 MCG PO
[2023-11-14] MEDS ORDERED: LACTATED RINGER'S 1,000 ML IV ONE (23:15)
[2023-11-14] MEDS ORDERED: FAMOTIDINE 20 MG/ 2 ML VIAL IV ONE (23:15)
[2023-11-14] MEDS ORDERED: KETOROLAC TROMETHAMINE 30 MG/ML VIAL IV ONE (23:15)
[2023-11-14 23:24] LABS: HEMOGLOBIN 13.6 g/dL (12.0-18.0)
[2023-11-14 23:28] LABS: BASOPHILS 0.5 % (0-2); EOSINOPHILS 0.6 % (0-6); HEMATOCRIT 40.5 % (35.0-50.0); LYMPHOCYTES 11.9 % (24-44); MCH 29.9 (27-36); MCHC 33.6 g/dl (30-36); MONOCYTES 3.3 % (0-12); NEUTROPHILS 83.7 % (39-80); PLATELET COUNT 224 K/uL (140-440); RBC 4.55 M/ul (4.3-5.7); RDW 13.6 (10.5-15.0)
[2023-11-14 23:48] LABS: ALBUMIN 3.7 g/dL (3.4-5.0); ALBUMIN/GLOBULIN RATIO 0.97 (1.1-2.4); ALCOHOL, MEDICAL <3 ng/dL (<3); ALKALINE PHOSPHATASE 84 U/L (46-116); ALT (SGPT) 42 U/L (14-59); ANION GAP 13.1 (7-21); AST (SGOT) 18 U/L (15-37); BILIRUBIN, TOTAL 0.3 ng/dL (0.2-1.0); BUN/CREATININE RATIO 17.75 (6.0-28.6); CALCIUM 9.1 mg/dL (8.5-10.1); CARBON DIOXIDE 29 mmol/L (21-32); CHLORIDE 102 mmol/L (98-107); CREATININE, SERUM 1.07 mg/dL (0.55-1.02); GLOMERULAR FILTRATION RATE,EST 68 mL/min (>60); POTASSIUM 4.1 mmol/L (3.5-5.1); PROTEIN, TOTAL 7.5 g/dL (6.4-8.2); TSH, 3RD GENERATION 1.478 uIU/mL (0.358-3.740); UREA NITROGEN 19 mg/dL (7-18)
[2023-11-15 00:18] LABS: BILIRUBIN, URINE NEGATIVE (negative); BLOOD/HGB, URINE NEGATIVE (Negative); KETONE, URINE NEGATIVE (Negative); LEUK ESTERASE, URINE NEGATIVE (negative); NITRITE, URINE POSITIVE (negative)
[2023-11-15 00:27] LABS: BACTERIA, URINE 3+ /hpf (negative); CASTS, URINE NONE SEEN \\lpf; COLLECTION TYPE, URINE CLEAN CATCH; CRYSTALS, URINE NONE SEEN (0-1+); EPITHELIAL CELLS, URINE SQUAMOUS 1+ /lpf (0-1+); RED BLOOD CELLS, URINE 0-1 /hpf (0-5); REFLEX CULTURE, URINE Yes (No)
[2023-11-15 00:34] LABS: AMPHETAMINES, URINE NEGATIVE (NEGATIVE); BARBITURATES, URINE NEGATIVE (NEGATIVE); BENZODIAZEPINE, URINE NEGATIVE (NEGATIVE); BUPRENORPHINE, URINE NEGATIVE (NEGATIVE); CANNABINOID, URINE NEGATIVE (NEGATIVE); COCAINE, URINE NEGATIVE (NEGATIVE); ECSTASY, URINE NEGATIVE (NEGATIVE); FENTANYL, URINE NEGATIVE (NEGATIVE); METHADONE, URINE NEGATIVE (NEGATIVE); OPIATES, URINE NEGATIVE (NEGATIVE); OXYCODONE, URINE NEGATIVE (NEGATIVE); PHENCYCLIDINE, URINE NEGATIVE (NEGATIVE)
[2023-11-15] MEDS ORDERED: MACROBID 100 M100 MG PO (00:44)
[2023-11-15] MEDS ORDERED: NITROFURANTOIN MONOHYD MACROCR 100 MG CAP PO ONE (00:45)
[2023-11-15 01:00] VITALS: BP 122/69
== END 2023-11-15 01:00 | disposition home or self-care (01) ==
LOC: ED 22:52
PROVIDERS: Internal Medicine
DX: N39.0 Urinary tract infection, site not specified (principal); G43.909 Migraine, unspecified, not intractable, without status migrainosus; Z88.3 Allergy status to other anti-infective agents; Z91.010 Allergy to peanuts; Z79.890 Hormone replacement therapy
CPT/HCPCS: 36415; 80053; 80307; 81001; 83690; 83735; 84443; 84703; 85025; 87088; 87186; 96374; 96375; 99284-25; G0480; J1885; J7121

== ENCOUNTER 2024-01-16 10:23 | Emergency (ER) | payer OTHER ==
[~2024-01-16] VITALS: Ht 152.4 cm; Wt 100.0 kg
[~2024-01-16 10:23] MED LIST changes: +MACROBID 100 M100 MG PO
[2024-01-16 11:31] VITALS: BP 131/78
== END 2024-01-16 11:31 | disposition home or self-care (01) ==
LOC: ED 10:23
DX: S93.402A Sprain of unspecified ligament of left ankle, initial encounter (principal); Z91.010 Allergy to peanuts; Z88.8 Allergy status to other drugs, medicaments and biological substances; X50.1XXA Overexertion from prolonged static or awkward postures, initial encounter
CPT/HCPCS: 73610; 99283

== ENCOUNTER 2024-05-04 16:50 | Emergency (ER) | payer BC ==
[~2024-05-04] VITALS: Ht 152.4 cm; Wt 99.8 kg
[2024-05-04] MEDS ORDERED: TIROSINT137 MCG PO (16:55)
[2024-05-04] MEDS ORDERED: DEXAMETHASONE SOD PHOS 10 MG/ML VIAL IV ONE (17:15)
[2024-05-04] MEDS ORDERED: GUAIFENESIN 10 ML UNIT DOSE CUP PO ONE (17:15)
[2024-05-04] MEDS ORDERED: ALBUTEROL SULFATE 0.083% 3 ML VIAL INH ONE (17:15)
[2024-05-04 18:07] LABS: CORONAVIRUS COVID-19 AG NEGATIVE (NEGATIVE); INFLUENZA A AG NEGATIVE (NEGATIVE); INFLUENZA B AG NEGATIVE (NEGATIVE)
[2024-05-04] MEDS ORDERED: VENTOLIN HFA18 GM INH (18:39)
[2024-05-04] MEDS ORDERED: BENZONATATE100 MG PO (18:39)
[2024-05-04 18:45] VITALS: BP 115/68
== END 2024-05-04 18:51 | disposition home or self-care (01) ==
LOC: ED 16:50
PROVIDERS: Emergency Medicine
DX: J06.9 Acute upper respiratory infection, unspecified (principal); Z91.010 Allergy to peanuts; Z88.8 Allergy status to other drugs, medicaments and biological substances; Z79.890 Hormone replacement therapy
CPT/HCPCS: 36415; 71046; 96374; 99285-25; J1100

== ENCOUNTER 2024-09-10 20:05 | Emergency (ER) | payer OTHER ==
[~2024-09-10] VITALS: Ht 152.4 cm; Wt 100.0 kg
[~2024-09-10 20:05] MED LIST changes: +BENZONATATE100 MG PO; +TIROSINT137 MCG PO; +VENTOLIN HFA18 GM INH
[2024-09-10] MEDS ORDERED: CYCLOBENZAPRINE HCL 10 MG HOME.PACK PO ONE (21:15)
[2024-09-10] MEDS ORDERED: methylPREDNISolone 4 MG HOME.PACK PO ONE (21:15)
[2024-09-10] MEDS ORDERED: CYCLOBENZAPRINE10 MG PO (21:17)
[2024-09-10 21:29] VITALS: BP 150/88
== END 2024-09-10 21:29 | disposition home or self-care (01) ==
LOC: ED 20:05
DX: M54.50 Low back pain, unspecified (principal); G89.29 Other chronic pain; Z91.010 Allergy to peanuts; Z88.8 Allergy status to other drugs, medicaments and biological substances; Z79.890 Hormone replacement therapy
CPT/HCPCS: 99283